=== PATIENT | male | born 1990 | race Two or more races ===

== ENCOUNTER 2023-04-22 18:56 | Emergency (ER) | payer SELFPAY ==
[~2023-04-22] VITALS: Ht 175.3 cm; Wt 90.0 kg
[2023-04-22 19:45] VITALS: PULSE 89; RESP 20; TEMP 98.4; O2SAT 98
[2023-04-22] MEDS ORDERED: MORPHINE SULFATE 4 MG/ML SYR/VIAL IV ONE (20:30)
[2023-04-22] MEDS ORDERED: ONDANSETRON HCL 4 MG/2 ML VIAL IV ONE (20:30)
[2023-04-22 22:00] VITALS: BP 120/87; PULSE 81; RESP 18; O2SAT 97
[2023-04-22] MEDS ORDERED: IBUP-1455 PO (22:33)
[2023-04-22] MEDS ORDERED: CYCL-837 PO (22:33)
== END 2023-04-22 22:47 | disposition home or self-care (01) ==
LOC: EDBD 18:56 → ER 18:56
DX: M54.89 Other dorsalgia (principal); M25.562 Pain in left knee; M25.561 Pain in right knee
CPT/HCPCS: 70450; 71250; 72125; 73560; 74176; 96374; 96375; 99285; J2270; J2405